=== PATIENT | male | born 1990 | race Caucasian/White ===

== ENCOUNTER 2019-01-20 05:50 | Emergency (ER) | payer OTHER ==
[~2019-01-20] VITALS: Ht 177.8 cm; Wt 104.3 kg
[2019-01-20 05:50] VITALS: BP_SYST 129
[2019-01-20 06:27] VITALS: BP_SYST 129
== END 2019-01-20 06:27 ==
LOC: SED 05:50
DX: Z02.89 Encounter for other administrative examinations (principal); J45.909 Unspecified asthma, uncomplicated
CPT/HCPCS: 99283